=== PATIENT | male | born 1985 | race Two or more races ===

== ENCOUNTER 2018-08-31 06:11 | Inpatient (IN) | payer MEDICAID ==
[2018-08-31 12:45] VITALS: BMI 32.4
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
[2018-08-31] MEDS ORDERED: Dextrose 50% SYRINGE Inj (50 ml) IV PRN (13:01)
[2018-08-31] MEDS ORDERED: Glucagon Recombinant 1 mg Inj IM PRN (13:01)
--- NOTE | 2018-08-31 14:00 | CP.PCM.CON ---
History of Present Illness - History of Present Illness History of Present Illness: Neurology Consultation Note: Consult requested by Dr. Delgado Mr. Medellin is a 32-year-old man with a past medical history of possible seizures, headaches, DM, alcoholism, who is currently admitted electively for 72 hour EEG monitoring. He is a patient of Dr. Vivar. He currently has no complaints. Review of Systems - Review of Systems All systems: reviewed and no additional remarkable complaints except Past Patient History - Past Medical History & Family History Past Medical History?: Yes - Past Social History Smoking Status: Current Some Days Smoker - CARDIAC Hx Cardiac Disorders: Yes Hx Hypertension: Yes - PULMONARY Hx Respiratory Disorders: No - NEUROLOGICAL Hx Neurological Disorder: Yes Hx Syncope: Yes Other/Comment: frequent headaches. blurred vision - HEENT Hx HEENT Problems: No - RENAL Hx Chronic Kidney Disease: No - ENDOCRINE/METABOLIC Hx Endocrine Disorders: Yes Hx Diabetes Mellitus Type 2: Yes - HEMATOLOGICAL/ONCOLOGICAL Hx Blood Disorders: No Hx AIDS: No - INTEGUMENTARY Hx Dermatological Problems: No - MUSCULOSKELETAL/RHEUMATOLOGICAL Hx Musculoskeletal Disorders: No Hx Falls: No - GASTROINTESTINAL Hx Gastrointestinal Disorders: Yes Other/Comment: Cholecystectomy 2017 - GENITOURINARY/GYNECOLOGICAL Hx Genitourinary Disorders: Yes - PSYCHIATRIC Hx Psychophysiologic Disorder: Yes Hx Anxiety: Yes Hx Depression: Yes Hx Hallucinations: Yes Hx Substance Use: No - SURGICAL HISTORY Hx Surgeries: Yes Hx Cholecystectomy: Yes (2016) - ANESTHESIA Hx Anesthesia: Yes Hx Anesthesia Reactions: No Hx Malignant Hyperthermia: No Has any member of the family had a problem w/ anesthesia?: No Meds Home Medications: Home Medication List Medication Instructions Recorded Confirmed Type Doxepin HCl 50 mg PO DAILY 30 Days capsule 08/31/18 Rx Duloxetine HCl 20 mg PO BID #60 capsule. 08/31/18 Rx Gabapentin 800 mg PO QID 30 Days tablet 08/31/18 Rx Insulin Glargine,Hum.rec.anlog 20 unit SQ HS 30 Days insuln.pen 08/31/18 Rx [Basaglar Kwikpen U-100] Melatonin/Pyridoxine HCl (B6) 1 each PO DAILY #30 tab.mphase 08/31/18 Rx [Melatonin 10 mg Tablet] Pantoprazole [Protonix EC Tab] 40 mg PO DAILY #30 ect 08/31/18 Rx amLODIPine [Norvasc] 5 mg PO DAILY 30 Days tab 08/31/18 Rx hydrOXYzine HCl [Atarax] 50 mg PO TID #90 tab 08/31/18 Rx Allergies/Adverse Reactions: Allergies Allergy/AdvReac Type Severity Reaction Status Date / Time No Known Allergies Allergy Verified 06/03/15 18:28 - Medications Medications: Current Medications Dextrose (Dextrose 50% Inj) 0 ml IV STAT PRN; Protocol PRN Reason: Hypoglycemia Protocol Dextrose (Glutose 15) 0 gm PO ONCE PRN; Protocol PRN Reason: Hypoglycemia Protocol Folic Acid (Folic Acid) 1 mg PO DAILY [facility] Glucagon (Glucagen Diagnostic Kit) 0 mg IM STAT PRN; Protocol PRN Reason: Hypoglycemia Protocol Insulin Detemir (Levemir) 20 units SC HS [facility] Insulin Human Regular (Humulin R) 0 units SC ACHS [facility]; Protocol Lorazepam (Ativan) 1 mg IVP Q4H PRN PRN Reason: Symptoms of alcohol withdrawl Nicotine (Nicoderm Cq) 1 patch TD DAILY [facility] Pantoprazole Sodium (Protonix Ec Tab) 40 mg PO DAILY [facility] Thiamine HCl (Vitamin B1 Tab) 100 mg PO DAILY [facility] Physical Exam - Constitutional Appears: Well - Head Exam Head Exam: ATRAUMATIC, NORMAL INSPECTION, NORMOCEPHALIC - Eye Exam Eye Exam: EOMI, Normal appearance, PERRL Pupil Exam: NORMAL ACCOMODATION, PERRL - ENT Exam ENT Exam: Mucous Membranes Moist, Normal Exam - Neck Exam Neck exam: Positive for: Normal Inspection - Respiratory Exam Respiratory Exam: Clear to Auscultation Bilateral, NORMAL BREATHING PATTERN - Cardiovascular Exam Cardiovascular Exam: REGULAR RHYTHM, +S1, +S2 - GI/Abdominal Exam GI & Abdominal Exam: Normal Bowel Sounds, Soft. absent: Tenderness - Extremities Exam Extremities exam: Positive for: normal inspection - Back Exam Back exam: NORMAL INSPECTION - Neurological Exam Neurological exam: Alert, CN II-XII Intact, Normal Gait, Oriented x3, Reflexes Normal - Psychiatric Exam Psychiatric exam: Normal Affect, Normal Mood - Skin Skin Exam: Dry, Intact, Normal Color, Warm Results - Vital Signs Recent Vital Signs: Last Vital Signs Temp Pulse 117 H 08/31/18 13:06 Resp 23 08/31/18 13:06 BP Pulse Ox 98 08/31/18 13:06 - Labs Labs: Laboratory Results - last 24 hr 08/31/18 13:03 POC Glucose (mg/dL) 259 H Assessment & Plan (1) Seizure Assessment and Plan: The patient will be admitted for 72 hour Video EEG monitoring. Neurology will follow and assist the primary team if there are any issues. Continue the patient's home meds per Dr. Vivar. Status: Acute
[2018-08-31] MEDS: Insulin Regular 100 units/ml SC SCH ×2 (16:43→21:31)
[2018-08-31] MEDS: Pantoprazole 40 mg EC Tab PO SCH (16:46)
[2018-08-31 17:31] LABS: MEAN CELL VOLUME 87.9 fl (80.0-94.0); MEAN CORPUSCULAR HEMOGLOBIN 29.8 pg (27.0-31.0); MEAN CORPUSCULAR HGB CONC 33.9 g/dL (33.0-37.0); RBC 5.02 Mil/uL (4.40-5.90); RED CELL DISTRIBUTION WIDTH 14.5 % (11.5-14.5); WHITE BLOOD COUNT 6.5 K/uL (4.8-10.8)
[2018-08-31 17:35] LABS: PROTHROMBIN TIME 11.9 Seconds (9.8-13.1)
[2018-08-31 17:37] LABS: PARTIAL THROMBOPLASTIN TIME 35.3 Seconds (25.6-37.1)
[2018-08-31 17:42] LABS: ALB/GLOB RATIO 1.4 (1.0-2.1); ALBUMIN 4.6 g/dL (3.5-5.0); ALT/SGPT 183 U/L (21-72); AST/SGOT 174 U/L (17-59); BLOOD UREA NITROGEN 11 mg/dl (9-20); CALCIUM 9.1 mg/dL (8.4-10.2); GFR NON-AFRICAN AMERICAN > 60
[2018-08-31] MEDS ORDERED: Insulin Detemir 100 Units/ml Inj SC SCH (22:00)
[2018-08-31 23:37] LABS: BARBITURATES, UR NEGATIVE (NEGATIVE); BENZODIAZEPINES, UR NEGATIVE (NEGATIVE); OPIATES, UR NEGATIVE (NEGATIVE); PHENCYCLIDINE, UR NEGATIVE (NEGATIVE)
[2018-09-01 05:32] LABS: HEMOGLOBIN 15.1 g/dL (12.0-18.0); MEAN CELL VOLUME 88.1 fl (80.0-94.0); MEAN CORPUSCULAR HEMOGLOBIN 30.1 pg (27.0-31.0); MEAN CORPUSCULAR HGB CONC 34.2 g/dL (33.0-37.0); RBC 5.01 Mil/uL (4.40-5.90); RED CELL DISTRIBUTION WIDTH 14.7 % (11.5-14.5); WHITE BLOOD COUNT 3.9 K/uL (4.8-10.8)
[2018-09-01 05:40] LABS: BLOOD UREA NITROGEN 12 mg/dl (9-20); CALCIUM 8.9 mg/dL (8.4-10.2); GFR NON-AFRICAN AMERICAN > 60
[2018-09-01] MEDS: Insulin Regular 100 units/ml SC SCH ×4 (06:42→22:13)
[2018-09-01] MEDS: Pantoprazole 40 mg EC Tab PO SCH (08:54)
[2018-09-01] MEDS ORDERED: Pneumococcal 23-Valent Vaccine IM ONE (09:00)
[2018-09-01] MEDS ORDERED: Influenza Vaccine 60 mcg/0.5 mL SYR (4YR UP) IM ONE ×2 (09:00)
--- NOTE | 2018-09-01 10:09 | CP.PCM.PN ---
<NajmaMony - Last Filed: 09/01/18 10:51> Subjective - Date & Time of Evaluation Date of Evaluation: 09/01/18 Time of Evaluation: 10:09 - Subjective Subjective: Patient seen and evaluated this AM. Patient resting comfortably and in NAD. Patient states that he did not sleep well last night. Denies nausea/vomiting/fever/shortness of breath/chest pain, admits to mild headache, mild sensitivity to light. Objective - Vital Signs/Intake and Output Vital Signs (last 24 hours): Temp Pulse Resp BP Pulse Ox 98.6 F 131 H 28 H 122/77 96 09/01/18 08:00 09/01/18 08:53 09/01/18 08:00 09/01/18 08:53 09/01/18 08:00 Intake and Output: 09/01/18 09/01/18 06:59 18:59 Intake Total 300 Output Total 400 Balance -100 - Medications Medications: Current Medications Amlodipine Besylate (Norvasc) 5 mg PO DAILY [facility] Last Admin: 09/01/18 08:53 Dose: 5 mg Dextrose (Dextrose 50% Inj) 0 ml IV STAT PRN; Protocol PRN Reason: Hypoglycemia Protocol Dextrose (Glutose 15) 0 gm PO ONCE PRN; Protocol PRN Reason: Hypoglycemia Protocol Doxepin HCl (Sinequan) 50 mg PO DAILY@2100 [facility] Last Admin: 08/31/18 20:39 Dose: 50 mg Duloxetine HCl (Cymbalta) 20 mg PO DAILY [facility] Last Admin: 09/01/18 08:52 Dose: 20 mg Folic Acid (Folic Acid) 1 mg PO DAILY [facility] Last Admin: 08/31/18 16:43 Dose: 1 mg Gabapentin (Neurontin) 800 mg PO TID [facility] Last Admin: 09/01/18 08:52 Dose: 800 mg Glucagon (Glucagen Diagnostic Kit) 0 mg IM STAT PRN; Protocol PRN Reason: Hypoglycemia Protocol Hydroxyzine HCl (Atarax) 50 mg PO DAILY [facility] Last Admin: 09/01/18 08:49 Dose: 50 mg Insulin Detemir (Levemir) 20 units SC HS [facility] Last Admin: 08/31/18 22:50 Dose: 20 units Insulin Human Regular (Humulin R) 0 units SC ACHS [facility]; Protocol Last Admin: 09/01/18 06:42 Dose: Not Given Lorazepam (Ativan) 0.5 mg PO Q8 [facility] Last Admin: 09/01/18 08:50 Dose: 0.5 mg Lorazepam (Ativan) 1 mg IVP Q4 PRN PRN Reason: Symptoms of alcohol withdrawl Last Admin: 09/01/18 06:29 Dose: 1 mg Nicotine (Nicoderm Cq) 1 patch TD DAILY [facility] Last Admin: 09/01/18 08:52 Dose: 1 patch Pantoprazole Sodium (Protonix Ec Tab) 40 mg PO DAILY [facility] Last Admin: 09/01/18 08:54 Dose: 40 mg Thiamine HCl (Vitamin B1 Tab) 100 mg PO DAILY [facility] Last Admin: 09/01/18 08:54 Dose: 100 mg - Labs Labs: 09/01/18 04:25 09/01/18 04:25 PT 11.9 Seconds (9.8-13.1) 08/31/18 17:22 INR 1.0 08/31/18 17:22 APTT 35.3 Seconds (25.6-37.1) 08/31/18 17:22 - Constitutional Appears: No Acute Distress - Head Exam Head Exam: ATRAUMATIC, NORMOCEPHALIC - ENT Exam ENT Exam: Mucous Membranes Moist - Respiratory Exam Respiratory Exam: NORMAL BREATHING PATTERN - Cardiovascular Exam Cardiovascular Exam: Tachycardia, REGULAR RHYTHM - GI/Abdominal Exam GI & Abdominal Exam: Soft, Normal Bowel Sounds - Neurological Exam Neurological Exam: Alert, Awake - Psychiatric Exam Psychiatric exam: Normal Affect, Normal Mood - Skin Skin Exam: Warm Assessment and Plan - Assessment and Plan (Free Text) Assessment: 32 year old male patient, with PMHx of DM, HTN, depression, anxiety, sleep apnea, admitted for 72 hour EEG monitoring. Plan: 1. Questionable seizures - Video EEG - Neuro consult 2. DM II - Chronic - Glargine 20 units HS - ACHS - Sliding scale 3. HTN - Chronic - C/W with home meds. Norvasc and enalopril 4. Alcoholism - CIWA protocol - CIWA 3 - Ativan PRN 5. Anxiety - Ativan .5mg Q8 6. Depression - Doxapine 7. Peripheral neuropathy - Gabapentin 800 Q8 8. Diet - Modified carb diet 9. DVT - SCDs <Mehnaz Delgado - Last Filed: 09/01/18 12:47> Objective - Vital Signs/Intake and Output Vital Signs (last 24 hours): Temp Pulse Resp BP Pulse Ox 98.6 F 100 H 17 138/96 H 98 09/01/18 08:00 09/01/18 10:00 09/01/18 10:00 09/01/18 10:00 09/01/18 10:00 Intake and Output: 09/01/18 09/01/18 06:59 18:59 Intake Total 300 Output Total 400 Balance -100 - Medications Medications: Current Medications Amlodipine Besylate (Norvasc) 5 mg PO DAILY [facility] Last Admin: 09/01/18 08:53 Dose: 5 mg Dextrose (Dextrose 50% Inj) 0 ml IV STAT PRN; Protocol PRN Reason: Hypoglycemia Protocol Dextrose (Glutose 15) 0 gm PO ONCE PRN; Protocol PRN Reason: Hypoglycemia Protocol Doxepin HCl (Sinequan) 50 mg PO DAILY@2100 [facility] Last Admin: 08/31/18 20:39 Dose: 50 mg Duloxetine HCl (Cymbalta) 20 mg PO DAILY [facility] Last Admin: 09/01/18 08:52 Dose: 20 mg Folic Acid (Folic Acid) 1 mg PO DAILY [facility] Last Admin: 09/01/18 11:44 Dose: 1 mg Gabapentin (Neurontin) 800 mg PO TID [facility] Last Admin: 09/01/18 08:52 Dose: 800 mg Glucagon (Glucagen Diagnostic Kit) 0 mg IM STAT PRN; Protocol PRN Reason: Hypoglycemia Protocol Hydroxyzine HCl (Atarax) 50 mg PO DAILY [facility] Last Admin: 09/01/18 08:49 Dose: 50 mg Insulin Detemir (Levemir) [address] [facility] Insulin Human Regular (Humulin R) 0 units SC [facility]; Protocol Last Admin: 09/01/18 11:45 Dose: 4 unit Lorazepam (Ativan) 0.5 mg PO Q8 [facility] Last Admin: 09/01/18 08:50 Dose: 0.5 mg Lorazepam (Ativan) 1 mg IVP Q4 PRN PRN Reason: Symptoms of alcohol withdrawl Last Admin: 09/01/18 06:29 Dose: 1 mg Nicotine (Nicoderm Cq) 1 patch TD DAILY [facility] Last Admin: 09/01/18 08:52 Dose: 1 patch Pantoprazole Sodium (Protonix Ec Tab) 40 mg PO DAILY [facility] Last Admin: 09/01/18 08:54 Dose: 40 mg Thiamine HCl (Vitamin B1 Tab) 100 mg PO DAILY [facility] Last Admin: 09/01/18 08:54 Dose: 100 mg - Labs Labs: 09/01/18 04:25 09/01/18 04:25 PT 11.9 Seconds (9.8-13.1) 08/31/18 17:22 INR 1.0 08/31/18 17:22 APTT 35.3 Seconds (25.6-37.1) 08/31/18 17:22 Attending/Attestation - Attestation I have personally seen and examined this patient.: Yes I have fully participated in the care of the patient.: Yes I have reviewed all pertinent clinical information, including history, physical exam and plan: Yes Notes (Text): Additional Note : DM type II with Hyperglycemia - increase Levemir to 24 units q hs Sinus Tachycardia likely due to ETOH Withdrawal and Anxiety - cont Ativan
--- NOTE | 2018-09-01 10:18 | PCM.VEEG ---
Video EEG - Procedure Start Date: 08/31/18 Start Time: 15:35 End Date: 09/01/18 End Time: 07:20 Technical Summary: DATA ACQUISITION: This was a multichannel inpatient video-EEG, a minimum of 22 channels were uti lized, performed in accordance with recommendations specified by the [place] [employer] (Sharif Escalante et al. ACNS Guideline 1: Minimum Technical Requirements for Performing Clinical Electroencephalography. Journal of Clinical Neurophysiology 2016;33:303-7). The 10-20 electrode placement system was utilized in accordance with guidelines detailed by the International Federation of Clinical Neurophysiology (Isidro Naylor et al. The Ten-Twenty Electrode System of the International Federation. Recommendations for the Practice of Clinical Neurophysiology: Guidelines of the International Federation of Clinical Physiology 1999; EEG Suppl. 52.). DATA REVIEW / SPIKE DETECTION / DIGITAL ANALYSIS: The entire EEG was scanned and reviewed. Synchronized audio and video recording were reviewed at the time of each alarm and whenever an abnormality or suspicious activity was noted. The entire recording was analyzed utilizing an automated digital spike and seizure analysis program and all automatic spike and seizure detections were manually reviewed. A compressed spectral array was displayed and reviewed alongside the raw EEG tracings. In addition, further analysis of the EEG was performed when abnormalities were identified, including montage changes, dipole source localization, and frequency band identification. This study was attended 24 hours per day. - Interpretation Description of the study: Indication; Epilepsy. Admitted for events characterization. EEG Finding during wakefulness: During active states, the EEG was characterized by 14-25 Hz, 15-30 uV activity bilaterally in fronto-central regions. Resting wakefulness was characterized by a symmetric posterior dominant rhythm of 9 to 10 Hz, 30-50 uV, which was reactive to eye opening and closing. Drowsiness was associated with slow roving eye movements, slowing and fragmentation of the posterior dominant rhythm, and bilateral 4-7 Hz, 40-70 uV theta activity, sometimes with a shifting predominance. Hyperventilation and photic stimulation were not performed. EEG Finding during sleep: Light sleep was recorded and was characterized by fronto-central slowing at 5-7 H, 50-125 uV, sharp central vertex waves, bilateral sleep spindles, and K- complexes; shifting asymmetries were evident. Deeper stages of sleep were not recorded. Interictal non-epileptiform abnormalities: None Interictal epileptiform abnormalities: None Ictal epileptiform abnormalities: None - Impression Impression: This ia a normal inpatient Video EEG monitoring study.
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
--- NOTE | 2018-09-01 15:02 | PQF ---
PROVIDER RESPONSE TEXT: DM type II with Neuro manifestation - Peripheral neuropathy REVIEWER QUERY TEXT: Diabetic Associated Manifestations Please specify any manifestations associated / due to diabetes Such as: -- Diabetes with Hypernatremia -- Diabetes with Hyponatremia -- Diabetes with renal manifestation -- Diabetes with neurologic manifestation -- Diabetes with ophthalmic manifestation -- Diabetes with peripheral circulatory manifestation -- Other, please specify The patient's Clinical Indicators include: History of DM Neuropathy Serum glucose runnin, 296, 250, 253, 171, 137 Rx: Accuchecks with coverage, Levemir Query created by: Alyse Silva on 09/01/2018 7:48 AM Electronically signed by: Mehnaz Delgado MD 09/01/2018 2:59 PM
[2018-09-01] MEDS ORDERED: Insulin Detemir 100 Units/ml Inj SC SCH (22:00)
[2018-09-02 05:46] LABS: BASO # 0.1 K/uL (0.0-0.2); BASO % 1.7 % (0.0-2.0); EOS # 0.3 K/uL (0.0-0.7); EOS % 5.2 % (0.0-4.0); HEMOGLOBIN 15.3 g/dL (12.0-18.0); LYMPH # 2.3 K/uL (1.0-4.3); LYMPH % 42.6 % (20.0-40.0); MEAN CELL VOLUME 87.2 fl (80.0-94.0); MEAN CORPUSCULAR HGB CONC 34.4 g/dL (33.0-37.0); MONO # 0.6 K/uL (0.0-0.8); MONO % 10.5 % (0.0-10.0); NEUT # 2.2 K/uL (1.8-7.0); NRBC % 0.2 % (0.0-0.0); RBC 5.09 Mil/uL (4.40-5.90); RED CELL DISTRIBUTION WIDTH 14.4 % (11.5-14.5); WHITE BLOOD COUNT 5.4 K/uL (4.8-10.8)
[2018-09-02 06:11] LABS: T4 7.04 ug/dl (5.5-11.0)
[2018-09-02] MEDS: Insulin Regular 100 units/ml SC SCH ×4 (08:29→21:15)
[2018-09-02] MEDS: Pantoprazole 40 mg EC Tab PO SCH (09:03)
[2018-09-02 09:08] LABS: ALB/GLOB RATIO 1.3 (1.0-2.1); ALBUMIN 4.2 g/dL (3.5-5.0); ALT/SGPT 141 U/L (21-72); AST/SGOT 93 U/L (17-59); BLOOD UREA NITROGEN 13 mg/dl (9-20); CALCIUM 9.3 mg/dL (8.4-10.2); GFR NON-AFRICAN AMERICAN > 60
--- NOTE | 2018-09-02 10:14 | CP.PCM.PN ---
<NajmaMony - Last Filed: 09/02/18 10:18> Subjective - Date & Time of Evaluation Date of Evaluation: 09/02/18 Time of Evaluation: 10:14 - Subjective Subjective: Patient seen and evaluated this morning, patient resting comfortably. No acute events overnight. Denies nausea/vomiting/fever/shortness of breath/chest pain, admits to mild headache this morning. Objective - Vital Signs/Intake and Output Vital Signs (last 24 hours): Temp Pulse Resp BP Pulse Ox 98.1 F 119 H 13 118/81 94 L 09/02/18 05:00 09/02/18 09:02 09/02/18 05:00 09/02/18 09:02 09/02/18 05:00 Intake and Output: 09/02/18 09/02/18 06:59 18:59 Output Total 1200 Balance -1200 - Medications Medications: Current Medications Amlodipine Besylate (Norvasc) 5 mg PO DAILY [facility] Last Admin: 09/02/18 09:02 Dose: 5 mg Dextrose (Dextrose 50% Inj) 0 ml IV STAT PRN; Protocol PRN Reason: Hypoglycemia Protocol Dextrose (Glutose 15) 0 gm PO ONCE PRN; Protocol PRN Reason: Hypoglycemia Protocol Doxepin HCl (Sinequan) 50 mg PO DAILY@2100 [facility] Last Admin: 09/01/18 20:16 Dose: 50 mg Duloxetine HCl (Cymbalta) 20 mg PO DAILY [facility] Last Admin: 09/02/18 09:01 Dose: 20 mg Folic Acid (Folic Acid) 1 mg PO DAILY [facility] Last Admin: 09/02/18 09:01 Dose: 1 mg Gabapentin (Neurontin) 800 mg PO TID [facility] Last Admin: 09/02/18 09:02 Dose: 800 mg Glucagon (Glucagen Diagnostic Kit) 0 mg IM STAT PRN; Protocol PRN Reason: Hypoglycemia Protocol Hydroxyzine HCl (Atarax) 50 mg PO DAILY [facility] Last Admin: 09/02/18 09:01 Dose: 50 mg Insulin Detemir (Levemir) 24 units SC HS [facility] Last Admin: 09/01/18 22:13 Dose: 24 unit Insulin Human Regular (Humulin R) 0 units SC ACHS [facility]; Protocol Last Admin: 09/02/18 08:29 Dose: Not Given Lorazepam (Ativan) 0.5 mg PO Q8 [facility] Last Admin: 09/02/18 09:00 Dose: 0.5 mg Lorazepam (Ativan) 1 mg IVP Q4 PRN PRN Reason: Symptoms of alcohol withdrawl Last Admin: 09/01/18 20:16 Dose: 1 mg Nicotine (Nicoderm Cq) 1 patch TD DAILY [facility] Last Admin: 09/02/18 09:02 Dose: 1 patch Pantoprazole Sodium (Protonix Ec Tab) 40 mg PO DAILY [facility] Last Admin: 09/02/18 09:03 Dose: 40 mg Thiamine HCl (Vitamin B1 Tab) 100 mg PO DAILY [facility] Last Admin: 09/02/18 09:03 Dose: 100 mg - Labs Labs: 09/02/18 04:40 09/02/18 04:40 PT 11.9 Seconds (9.8-13.1) 08/31/18 17:22 INR 1.0 08/31/18 17:22 APTT 35.3 Seconds (25.6-37.1) 08/31/18 17:22 - Constitutional Appears: Non-toxic, No Acute Distress - Head Exam Head Exam: ATRAUMATIC, NORMOCEPHALIC - Eye Exam Eye Exam: Normal appearance - ENT Exam ENT Exam: Mucous Membranes Moist - Respiratory Exam Respiratory Exam: Clear to Ausculation Bilateral, NORMAL BREATHING PATTERN - Cardiovascular Exam Cardiovascular Exam: Tachycardia, REGULAR RHYTHM - GI/Abdominal Exam GI & Abdominal Exam: Soft, Normal Bowel Sounds - Back Exam Back Exam: NORMAL INSPECTION - Neurological Exam Neurological Exam: Alert, Awake, Oriented x3 - Psychiatric Exam Psychiatric exam: Normal Affect, Normal Mood Assessment and Plan - Assessment and Plan (Free Text) Assessment: 32 year old male patient, with PMHx of DM, HTN, depression, anxiety, sleep apnea, admitted for 72 hour EEG monitoring. Plan: 1. Questionable seizures - Video EEG - Neuro consult 2. DM II - Chronic - Glargine 20 units HS - ACHS - Sliding scale 3. HTN - Chronic - C/W with home meds. Norvasc and enalopril 4. Alcoholism - CIWA protocol - CIWA 1 - Ativan PRN 5. Sinus Tachycardia - Likely secondary to alcohol withdrawal and anxiety - Cont ativan 5. Anxiety - Ativan .5mg Q8 6. Depression - Doxapine 7. Peripheral neuropathy - Gabapentin 800 Q8 8. Diet - Modified carb diet 9. DVT - SCDs <Delgado,Mehnazambrocio Tuttle - Last Filed: 09/02/18 15:16> Objective - Vital Signs/Intake and Output Vital Signs (last 24 hours): Temp Pulse Resp BP Pulse Ox 98.1 F 119 H 13 118/81 100 09/02/18 05:00 09/02/18 09:02 09/02/18 09:00 09/02/18 09:02 09/02/18 09:00 Intake and Output: 09/02/18 09/02/18 06:59 18:59 Intake Total 250 Output Total 1200 1200 Balance -1200 -950 - Medications Medications: Current Medications Amlodipine Besylate (Norvasc) 5 mg PO DAILY [facility] Last Admin: 09/02/18 09:02 Dose: 5 mg Dextrose (Dextrose 50% Inj) 0 ml IV STAT PRN; Protocol PRN Reason: Hypoglycemia Protocol Dextrose (Glutose 15) 0 gm PO ONCE PRN; Protocol PRN Reason: Hypoglycemia Protocol Doxepin HCl (Sinequan) 50 mg PO DAILY@2100 [facility] Last Admin: 09/01/18 20:16 Dose: 50 mg Duloxetine HCl (Cymbalta) 20 mg PO DAILY [facility] Last Admin: 09/02/18 09:01 Dose: 20 mg Folic Acid (Folic Acid) 1 mg PO DAILY [facility] Last Admin: 09/02/18 09:01 Dose: 1 mg Gabapentin (Neurontin) 800 mg PO TID [facility] Last Admin: 09/02/18 13:46 Dose: 800 mg Glucagon (Glucagen Diagnostic Kit) 0 mg IM STAT PRN; Protocol PRN Reason: Hypoglycemia Protocol Hydroxyzine HCl (Atarax) 50 mg PO DAILY [facility] Last Admin: 09/02/18 09:01 Dose: 50 mg Insulin Detemir (Levemir) 24 units SC HS [facility] Last Admin: 09/01/18 22:13 Dose: 24 unit Insulin Human Regular (Humulin R) 0 units SC ACHS [facility]; Protocol Last Admin: 09/02/18 11:37 Dose: 6 unit Lorazepam (Ativan) 0.5 mg PO Q8 [facility] Last Admin: 09/02/18 09:00 Dose: 0.5 mg Lorazepam (Ativan) 1 mg IVP Q4 PRN PRN Reason: Symptoms of alcohol withdrawl Last Admin: 09/01/18 20:16 Dose: 1 mg Nicotine (Nicoderm Cq) 1 patch TD DAILY [facility] Last Admin: 09/02/18 09:02 Dose: 1 patch Pantoprazole Sodium (Protonix Ec Tab) 40 mg PO DAILY [facility] Last Admin: 09/02/18 09:03 Dose: 40 mg Potassium Chloride (K-Dur 20 Meq Er Tab) 20 meq PO ONCE ONE Stop: 09/02/18 15:13 Thiamine HCl (Vitamin B1 Tab) 100 mg PO DAILY [facility] Last Admin: 09/02/18 09:03 Dose: 100 mg - Labs Labs: 09/02/18 04:40 09/02/18 04:40 PT 11.9 Seconds (9.8-13.1) 08/31/18 17:22 INR 1.0 08/31/18 17:22 APTT 35.3 Seconds (25.6-37.1) 08/31/18 17:22 Attending/Attestation - Attestation I have personally seen and examined this patient.: Yes I have fully participated in the care of the patient.: Yes I have reviewed all pertinent clinical information, including history, physical exam and plan: Yes Notes (Text): r/o Seizure Disorder - cont EEG - will complete tomorrow at 4pm - EEG reading : no seizures so far DM type II with Hyperglycemia - increase Levemir to 26 units q hs accucheck with coverage Sinus Tachycardia likely due to ETOH Withdrawal and Anxiety - cont Ativan Alcoholism - cont Ativan RTC and prn, Thiamine
--- NOTE | 2018-09-02 11:18 | PCM.VEEG ---
Video EEG - Procedure Start Date: 09/01/18 Start Time: 07:15 End Date: 09/02/18 End Time: 06:05 - Interpretation Description of the study: DATA ACQUISITION: This was a multichannel inpatient video-EEG, a minimum of 22 channels were utilized, performed in accordance with recommendations specified by the [place] [employer] (Sharif Escalante et al. ACNS Guideline 1: Minimum Technical Requirements for Performing Clinical Electroencephalography. Journal of Clinical Neurophysiology 2016;33:303-7). The 10-20 electrode placement system was utilized in accordance with guidelines detailed by the International Federation of Clinical Neurophysiology (Isidro Naylor et al. The Ten-Twenty Electrode System of the International Federation. Recommendations for the Practice of Clinical Neurophysiology: Guidelines of the International Federation of Clinical Physiology 1999; EEG Suppl. 52.). DATA REVIEW / SPIKE DETECTION / DIGITAL ANALYSIS: The entire EEG was scanned and reviewed. Synchronized audio and video recording were reviewed at the time of each alarm and whenever an abnormality or suspicious activity was noted. The entire recording was analyzed utilizing an automated digital spike and seizure analysis program and all automatic spike and seizure detections were manually reviewed. A compressed spectral array was displayed and reviewed alongside the raw EEG tracings. In addition, further analysis of the EEG was performed when abnormalities were identified, including montage changes, dipole source localization, and frequency band identification. This study was attended 24 hours per day. EEG Finding during wakefulness: During active states, the EEG was characterized by 14-25 Hz, 15-30 uV activity bilaterally in fronto-central regions. Resting wakefulness was characterized by a symmetric posterior dominant rhythm of 9 to 10 Hz, 30-50 uV, which was reactive to eye opening and closing. Drowsiness was associated with slow roving eye movements, slowing and fragmentation of the posterior dominant rhythm, and bilateral 4-7 Hz, 40-70 uV theta activity, sometimes with a shifting predominance. Hyperventilation and photic stimulation were not performed. EEG Finding during sleep: Light sleep was recorded and was characterized by fronto-central slowing at 5-7 H, 50-125 uV, sharp central vertex waves, bilateral sleep spindles, and K- complexes; shifting asymmetries were evident. Deeper stages of sleep were recorded and were characterized an increasing frequency of 1-4 Hz, 50-100 uV delta activity. REM sleep was also recorded and was characterized by mixed frequency (3-15 Hz) low voltage (< 20 uV) activity with clusters of rapid horizontal and vertical eye movements. There were no significant asymmetries noted during sleep. Interictal non-epileptiform abnormalities: None Interictal epileptiform abnormalities: None Ictal epileptiform abnormalities: None 2 PB activations, no EEG changes, probably accidental, at 16;26 and 18;24. - Impression Impression: This is normal Video EEG monitoring study.
--- NOTE | 2018-09-02 11:20 | CP.PCM.PN ---
Subjective - Date & Time of Evaluation Date of Evaluation: 09/02/18 Time of Evaluation: 11:17 - Subjective Subjective: Neuro Follow-Up Note: Mr. Medellin was evaluated this afternoon in the ICU. Mother present at bedside. Pt is still attached to the VEEG x72 hours. He states that he feels fine, still c/o being bored and still unable to get sufficient sleep in the hospital. Had a headache this morning but has since resolved. Currently denies h/a, dizziness, visual changes, chest pain, palpitations, sob, cough, abd pain, n/v/d. Objective - Vital Signs/Intake and Output Vital Signs (last 24 hours): Temp Pulse Resp BP Pulse Ox 98.1 F 119 H 13 118/81 100 09/02/18 05:00 09/02/18 09:02 09/02/18 09:00 09/02/18 09:02 09/02/18 09:00 Intake and Output: 09/02/18 09/02/18 06:59 18:59 Intake Total 250 Output Total 1200 1200 Balance -1200 -950 - Medications Medications: Current Medications Amlodipine Besylate (Norvasc) 5 mg PO DAILY [facility] Last Admin: 09/02/18 09:02 Dose: 5 mg Dextrose (Dextrose 50% Inj) 0 ml IV STAT PRN; Protocol PRN Reason: Hypoglycemia Protocol Dextrose (Glutose 15) 0 gm PO ONCE PRN; Protocol PRN Reason: Hypoglycemia Protocol Doxepin HCl (Sinequan) 50 mg PO DAILY@2100 [facility] Last Admin: 09/01/18 20:16 Dose: 50 mg Duloxetine HCl (Cymbalta) 20 mg PO DAILY [facility] Last Admin: 09/02/18 09:01 Dose: 20 mg Folic Acid (Folic Acid) 1 mg PO DAILY [facility] Last Admin: 09/02/18 09:01 Dose: 1 mg Gabapentin (Neurontin) 800 mg PO TID [facility] Last Admin: 09/02/18 09:02 Dose: 800 mg Glucagon (Glucagen Diagnostic Kit) 0 mg IM STAT PRN; Protocol PRN Reason: Hypoglycemia Protocol Hydroxyzine HCl (Atarax) 50 mg PO DAILY [facility] Last Admin: 09/02/18 09:01 Dose: 50 mg Insulin Detemir (Levemir) 24 units SC [facility] Last Admin: 09/01/18 22:13 Dose: 24 unit Insulin Human Regular (Humulin R) 0 units SC ACHS [facility]; Protocol Last Admin: 09/02/18 08:29 Dose: Not Given Lorazepam (Ativan) 0.5 mg PO Q8 [facility] Last Admin: 09/02/18 09:00 Dose: 0.5 mg Lorazepam (Ativan) 1 mg IVP Q4 PRN PRN Reason: Symptoms of alcohol withdrawl Last Admin: 09/01/18 20:16 Dose: 1 mg Nicotine (Nicoderm Cq) 1 patch TD DAILY [facility] Last Admin: 09/02/18 09:02 Dose: 1 patch Pantoprazole Sodium (Protonix Ec Tab) 40 mg PO DAILY [facility] Last Admin: 09/02/18 09:03 Dose: 40 mg Thiamine HCl (Vitamin B1 Tab) 100 mg PO DAILY [facility] Last Admin: 09/02/18 09:03 Dose: 100 mg - Labs Labs: 09/02/18 04:40 09/02/18 04:40 PT 11.9 Seconds (9.8-13.1) 08/31/18 17:22 INR 1.0 08/31/18 17:22 APTT 35.3 Seconds (25.6-37.1) 08/31/18 17:22 - Constitutional Appears: Well, Non-toxic, No Acute Distress - Head Exam Head Exam: NORMOCEPHALIC - Eye Exam Eye Exam: EOMI, Normal appearance, PERRL Pupil Exam: NORMAL ACCOMODATION, PERRL - ENT Exam ENT Exam: Mucous Membranes Moist - Neck Exam Neck Exam: Full ROM, Normal Inspection - Respiratory Exam Respiratory Exam: NORMAL BREATHING PATTERN - Extremities Exam Extremities Exam: Full ROM, Normal Inspection. absent: Calf Tenderness, Pedal Edema - Back Exam Back Exam: Full ROM - Neurological Exam Neurological Exam: Alert, Awake, CN II-XII Intact, Oriented x3 Neuro motor strength exam: Left Upper Extremity: 5, Right Upper Extremity: 5, Left Lower Extremity: 5, Right Lower Extremity: 5 Additional comments: Speech clear, fluid No focal motor or sensory deficits. No tremors noted today to hands/fingers. - Psychiatric Exam Psychiatric exam: Normal Affect, Normal Mood - Skin Skin Exam: Normal Color Assessment and Plan (1) Seizure Assessment & Plan: Diagnostics reviewed: -VEEG: preliminary reading by Dr. Ingram on 09/01/18 is unremarkable, no seizures. -Continue 72 hour VEEG for now--was started 2/13/19 at 1618. May be disconnected on 09/03/18, at 4:00 pm. -Continue current medications. -Continue seizure precautions. -Continue to monitor for ETOH withdrawals (last drink was just prior to coming to the hospital; drink 750 ml Bottle of Vodka per day). -Notify neuro of any acute changes in pt's condition or any seizure activity. -Pt instructed to f/u with Dr. Vivar in the office to discuss the 72 hour EEG results---he has a scheduled appt for 09/21/18. Chio Jimenez DNP, [employer] Case discussed with Dr. Godoy Status: Acute
[2018-09-02] MEDS ORDERED: Potassium Chloride 20 mEq ER Tab PO ONE (15:12)
[2018-09-02] MEDS ORDERED: Insulin Detemir 100 Units/ml Inj SC SCH (22:00)
[2018-09-03 06:37] LABS: BASO # 0.1 K/uL (0.0-0.2); BASO % 1.5 % (0.0-2.0); EOS # 0.3 K/uL (0.0-0.7); EOS % 5.7 % (0.0-4.0); HEMOGLOBIN 14.9 g/dL (12.0-18.0); LYMPH # 1.8 K/uL (1.0-4.3); LYMPH % 38.9 % (20.0-40.0); MEAN CELL VOLUME 88.1 fl (80.0-94.0); MEAN PLATELET VOLUME 9.7 fl (7.2-11.7); MONO # 0.5 K/uL (0.0-0.8); MONO % 11.2 % (0.0-10.0); NEUT % 42.7 % (50.0-75.0); RBC 4.96 Mil/uL (4.40-5.90); RED CELL DISTRIBUTION WIDTH 14.2 % (11.5-14.5); WHITE BLOOD COUNT 4.7 K/uL (4.8-10.8)
[2018-09-03 06:44] LABS: ALB/GLOB RATIO 1.3 (1.0-2.1); ALT/SGPT 134 U/L (21-72); AST/SGOT 99 U/L (17-59); BLOOD UREA NITROGEN 11 mg/dl (9-20); CALCIUM 9.1 mg/dL (8.4-10.2); GFR NON-AFRICAN AMERICAN > 60
[2018-09-03 08:12] VITALS: BP 109/78
[2018-09-03] MEDS: Pantoprazole 40 mg EC Tab PO SCH (09:51)
[2018-09-03] MEDS: Insulin Regular 100 units/ml SC SCH (11:48)
[2018-09-03 12:17] VITALS: PULSE 99; RESP 24; TEMP 97.9; O2SAT 95
--- NOTE | 2018-09-03 12:30 | CP.PCM.DIS ---
Provider - Provider Date of Admission: 08/31/18 13:02 Attending physician: Mehnaz Delgado MD Primary care physician: Dr. Foreman Consults: 08/31/18 13:00 Neurology Consult Routine Comment: Consulting Provider: Rick Godoy Consulting Physician: Rick Godoy Reason for Consult: video EEG Time Spent in preparation of Discharge (in minutes): 20 Hospital Course - Lab Results Lab Results: Micro Results 08/31/18 17:40 Naris MRSA Culture (Admit) - Final MRSA NOT DETECTED Most Recent Lab Values WBC 4.7 K/uL (4.8-10.8) L 09/03/18 05:30 RBC 4.96 Mil/uL (4.40-5.90) 09/03/18 05:30 Hgb 14.9 g/dL (12.0-18.0) 09/03/18 05:30 Hct 43.7 % (35.0-51.0) 09/03/18 05:30 MCV 88.1 fl (80.0-94.0) 09/03/18 05:30 MCH 30.0 pg (27.0-31.0) 09/03/18 05:30 MCHC 34.0 g/dL (33.0-37.0) 09/03/18 05:30 RDW 14.2 % (11.5-14.5) 09/03/18 05:30 Plt Count 159 K/uL (130-400) 09/03/18 05:30 MPV 9.7 fl (7.2-11.7) 09/03/18 05:30 Neut % (Auto) 42.7 % (50.0-75.0) L 09/03/18 05:30 Lymph % (Auto) 38.9 % (20.0-40.0) 09/03/18 05:30 [place] % (Auto) 11.2 % (0.0-10.0) H 09/03/18 05:30 Eos % (Auto) 5.7 % (0.0-4.0) H 09/03/18 05:30 Baso % (Auto) 1.5 % (0.0-2.0) 09/03/18 05:30 Neut # (Auto) 2.0 K/uL (1.8-7.0) 09/03/18 05:30 Lymph # (Auto) 1.8 K/uL (1.0-4.3) 09/03/18 05:30 [place] # (Auto) 0.5 K/uL (0.0-0.8) 09/03/18 05:30 Eos # (Auto) 0.3 K/uL (0.0-0.7) 09/03/18 05:30 Baso # (Auto) 0.1 K/uL (0.0-0.2) 09/03/18 05:30 PT 11.9 Seconds (9.8-13.1) 08/31/18 17:22 INR 1.0 08/31/18 17:22 APTT 35.3 Seconds (25.6-37.1) 08/31/18 17:22 Sodium 135 mmol/l (132-148) 09/03/18 05:30 Potassium 3.9 MMOL/L (3.6-5.0) 09/03/18 05:30 Chloride 97 mmol/L (98-107) L 09/03/18 05:30 Carbon Dioxide 28 mmol/L (22-30) 09/03/18 05:30 Anion Gap 14 (10-20) 09/03/18 05:30 BUN 11 mg/dl (9-20) 09/03/18 05:30 Creatinine 0.7 mg/dl (0.8-1.5) L 09/03/18 05:30 Est GFR ( Amer) > 60 09/03/18 05:30 Est GFR (Non-Af Amer) > 60 09/03/18 05:30 POC Glucose (mg/dL) 298 mg/dL (65-110) H 09/03/18 11:41 Random Glucose 259 mg/dL (75-110) H 09/03/18 05:30 Calcium 9.1 mg/dL (8.4-10.2) 09/03/18 05:30 Magnesium 1.8 MG/DL (1.6-2.3) 08/31/18 17:22 Total Bilirubin 0.8 mg/dl (0.2-1.3) 09/03/18 05:30 AST 99 U/L (17-59) H 09/03/18 05:30 ALT 134 U/L (21-72) H 09/03/18 05:30 Alkaline Phosphatase 99 U/L (38-126) 09/03/18 05:30 Total Protein 7.0 G/DL (6.3-8.2) 09/03/18 05:30 Albumin 4.0 g/dL (3.5-5.0) 09/03/18 05:30 Globulin 3.0 gm/dL (2.2-3.9) 09/03/18 05:30 Albumin/Globulin Ratio 1.3 (1.0-2.1) 09/03/18 05:30 Thyroxine (T4) 7.04 ug/dl (5.5-11.0) 09/02/18 04:40 TSH 3rd Generation 1.55 mIU/ML (0.46-4.68) 09/02/18 04:40 Urine Opiates Screen Negative (NEGATIVE) 08/31/18 23:04 Urine Methadone Screen Negative (NEGATIVE) 08/31/18 23:04 Ur Barbiturates Screen Negative (NEGATIVE) 08/31/18 23:04 Ur Phencyclidine Scrn Negative (NEGATIVE) 08/31/18 23:04 Ur Amphetamines Screen Negative (NEGATIVE) 08/31/18 23:04 U Benzodiazepines Scrn Negative (NEGATIVE) 08/31/18 23:04 U Oth Cocaine Metabols Negative (NEGATIVE) 08/31/18 23:04 U Cannabinoids Screen Negative (NEGATIVE) 08/31/18 23:04 - Hospital Course Hospital Course: 32 year old male patient, with PMHx of DM, HTN, depression, anxiety, sleep apnea was admitted for 72 hour EEG monitoring as recommended by his neurologist. After EEG monitoring will be discharged to follow up with his neurologist . At present he is hemodynamically stable, afebrile. Discharge Exam - Head Exam Head Exam: ATRAUMATIC, NORMOCEPHALIC - Eye Exam Eye Exam: EOMI, PERRL Pupil Exam: NORMAL ACCOMODATION - ENT Exam ENT Exam: Mucous Membranes Moist, Normal Exam - Neck Exam Neck exam: Full Rom, Normal Inspection - Respiratory Exam Respiratory Exam: Clear to PA & Lateral, NORMAL BREATHING PATTERN. absent: Rales, Rhonchi, Wheezes - Cardiovascular Exam Cardiovascular Exam: REGULAR RHYTHM, RRR, +S1, +S2. absent: JVD - GI/Abdominal Exam GI & Abdominal Exam: Normal Bowel Sounds, Soft. absent: Distended, Guarding, Rebound, Tenderness - Rectal Exam Rectal Exam: Deferred - Extremities Exam Extremities exam: normal capillary refill, normal inspection, pedal pulses present - Back Exam Back exam: NORMAL INSPECTION - Neurological Exam Neurological exam: Alert, CN II-XII Intact, Oriented x3, Reflexes Normal - Psychiatric Exam Psychiatric exam: Normal Affect, Normal Mood - Skin Skin Exam: Dry, Intact, Normal Color, Warm Discharge Plan - Discharge Medications Prescriptions: amLODIPine [Norvasc] 5 mg PO DAILY 30 Days tab Doxepin HCl 50 mg PO DAILY 30 Days capsule Duloxetine HCl 20 mg PO BID #60 capsule. Gabapentin 800 mg PO QID 30 Days tablet hydrOXYzine HCl [Atarax] 50 mg PO TID #90 tab Insulin Glargine,Hum.rec.anlog [Basaglar Kwikpen U-100] 20 unit SQ HS 30 Days insuln.pen Melatonin/Pyridoxine HCl (B6) [Melatonin 10 mg Tablet] 1 each PO DAILY #30 tab.mphase Pantoprazole [Protonix EC Tab] 40 mg PO DAILY #30 ect - Follow Up Plan Condition: GOOD Disposition: HOME/ ROUTINE Patient education suggested?: Yes Referrals: Asif Foreman MD [Medical Doctor] -
== END 2018-09-03 14:40 | disposition home or self-care (01) | DRG 889 ==
LOC: H.ICU/CCU 13:02
PROVIDERS: ADMIT Internal Medicine; ATTEND Internal Medicine
PROC: 4A10X4Z Monitoring of Central Nervous Electrical Activity, External Approach (ICD-10-PCS; principal; 2018-09-01)
DX: R56.9 Unspecified convulsions (principal); E11.40 Type 2 diabetes mellitus with diabetic neuropathy, unspecified; F10.239 Alcohol dependence with withdrawal, unspecified; F12.90 Cannabis use, unspecified, uncomplicated; F17.210 Nicotine dependence, cigarettes, uncomplicated; F41.8 Other specified anxiety disorders; E11.65 Type 2 diabetes mellitus with hyperglycemia; F32.9 Major depressive disorder, single episode, unspecified; F41.9 Anxiety disorder, unspecified; G47.30 Sleep apnea, unspecified; I10 Essential (primary) hypertension; Z79.899 Other long term (current) drug therapy; Z90.49 Acquired absence of other specified parts of digestive tract; H53.8 Other visual disturbances; R00.0 Tachycardia, unspecified; R41.3 Other amnesia